=== PATIENT | male | born 1975 | race Caucasian/White ===

== ENCOUNTER → 2017-10-20 | Outpatient (CLI) | payer SELFPAY | LOC: M OUTALCOH 10:38 | DX: Z03.89 Encounter for observation for other suspected diseases and conditions ruled out (principal) ==

== ENCOUNTER 2017-11-04 11:00 | Outpatient (RCR) | payer SELFPAY | END 2017-11-20 | LOC: M OUTALCOH 11:00 | DX: Z03.89 Encounter for observation for other suspected diseases and conditions ruled out (principal) ==

== ENCOUNTER → 2018-02-23 | Outpatient (CLI) | payer SELFPAY | LOC: M OUTALCOH 10:25 | PROVIDERS: ATTEND Psychiatry & Neurology Psychiatry | DX: Z03.89 Encounter for observation for other suspected diseases and conditions ruled out (principal) ==

== ENCOUNTER 2018-03-03 10:37 | Outpatient (RCR) | payer MEDICAID, SELFPAY | END 2018-03-23 | LOC: M OUTALCOH 10:37 | PROVIDERS: ATTEND Psychiatry & Neurology Psychiatry | DX: Z03.89 Encounter for observation for other suspected diseases and conditions ruled out (principal) ==